=== PATIENT | male | born 1995 | race Caucasian/White ===

== ENCOUNTER 2018-03-10 00:54 | Emergency (ER) | payer SELFPAY ==
[~2018-03-10] VITALS: Ht 182.9 cm; Wt 155.0 kg
[2018-03-10 00:58] VITALS: TEMP 98.1
[2018-03-10] MEDS ORDERED: EXCEDRIN1 TAB PO (01:07)
[2018-03-10] MEDS ORDERED: NORCO 325 MG-51 TAB PO (02:04)
[2018-03-10] MEDS ORDERED: COZAAR 50MG50 MG/TAB PO (02:08)
[2018-03-10 02:15] VITALS: BP 144/87; PULSE 85
== END 2018-03-10 02:18 | disposition home or self-care (01) ==
LOC: COL.ER 00:54
DX: K02.9 Dental caries, unspecified (principal); I10 Essential (primary) hypertension; F17.210 Nicotine dependence, cigarettes, uncomplicated; Z91.14 Patient's other noncompliance with medication regimen
CPT/HCPCS: J0561; J1885

== ENCOUNTER 2022-06-29 17:23 | Emergency (ER) | payer SELFPAY ==
[~2022-06-29] VITALS: Ht 182.9 cm; Wt 200.0 kg
[~2022-06-29 17:23] MED LIST: COZAAR 50MG50 MG/TAB PO; EXCEDRIN1 TAB PO; NORCO 325 MG-51 TAB PO
[2022-06-29] MEDS ORDERED: FLONASEALLERGY NS (18:41)
[2022-06-29] MEDS ORDERED: AMOXICILLIN 8751 TAB PO (18:41)
[2022-06-29 19:05] VITALS: BP 157/90; PULSE 86; TEMP 98.7
== END 2022-06-29 19:06 | disposition home or self-care (01) ==
LOC: COL.ER 17:23
DX: J01.00 Acute maxillary sinusitis, unspecified (principal); K08.89 Other specified disorders of teeth and supporting structures; Z88.5 Allergy status to narcotic agent
CPT/HCPCS: J1200; J2405